=== PATIENT | female | born 1980 | race Caucasian/White ===

== ENCOUNTER 2016-09-28 08:47 | Emergency (ER) | payer SELFPAY ==
[2016-09-28] MEDS ORDERED: ACETAMINOPHEN 325 MG TABLET PO STA (10:10)
[2016-09-28] MEDS ORDERED: IBUPROFEN 400 MG TABLET PO STA (10:10)
[2016-09-28] MEDS ORDERED: IBUPROFEN 400 MG TABLET PO ONE (10:11)
[2016-09-28] MEDS ORDERED: ACETAMINOPHEN 325 MG TABLET PO ONE (10:11)
--- NOTE | 2016-09-28 10:12 | ED Physician Documentation ---
History of Present Illness - Stated complaint Stated Complaint: LT ANKLE PX - Chief complaint Chief Complaint: Ext Problem - Additonal information Additional information: hx from pt fell down beach stairs at rental house yesterday and has lat mall pain states fall caused by the stairs no other injury Review of Systems : denies: Now EGA Musculoskeletal: reports: Pain with weight bearing PD PAST MEDICAL HISTORY - Past Medical History Past Medical History: Yes Psych: Depression - Past Surgical History Past Surgical History: No - Present Medications Home Medications: Ambulatory Orders Medication Instructions Recorded Confirmed Citalopram [CeleXA] 40 mg PO DAILY 09/28/16 09/28/16 - Allergies Allergies/Adverse Reactions: Allergies Allergy/AdvReac Type Severity Reaction Status Date / Time No Known Drug Allergies Allergy Verified 09/28/16 08:52 - Social History Does the pt smoke?: No Smoking Status: Never smoker Does the pt drink ETOH?: No Does the pt have substance abuse?: No - Immunizations Immunizations are current?: Yes PD ED PE NORMAL - Vitals Vital signs reviewed: Yes - Extremities Extremities: Other (no knee pain, TTP and swelling to lat mall, no foot pain, MSV intact) Results - Vitals Vitals: Vital Signs - 24 hr 09/28/16 08:53 Heart Rate 102 H Respiratory 14 Rate Blood Pressure 119/89 H O2 Saturation 98 Oxygen O2 Source Room air - Rads (name of study) ankle Radiology: See rad report (STS ow neg) Departure - Departure Disposition: 01 Home, Self Care Clinical Impression: Ankle sprain Qualifiers: Encounter type: initial encounter Involved ligament of ankle: unspecified ligament Laterality: left Qualified Code(s): S93.402A - Sprain of unspecified ligament of left ankle, initial encounter Condition: Good Instructions: ED Sprain Ankle W X Ray, ED Crutch Walking Comments: The xray does not show any fracture Recommend wearing the IRVIN to decrease swelling - ice and elevation will help pain and swelling too Crutches to get the stress of the ankle for the next few days Then wear the ankle brace for support when ambulating again If still very painful in 2 weeks, please see your PMD for a recheck and consideration of further imaging
--- NOTE | 2016-09-28 11:20 | XRAY Report ---
EXAM: LEFT ANKLE RADIOGRAPHY EXAM DATE: 09/28/2016 10:24 AM. CLINICAL HISTORY: Lateral pain, fall downstairs. COMPARISON: None. TECHNIQUE: 3 views. FINDINGS: Bones: Bony mineralization appears appropriate. No acute fracture or focal osseous destruction. Joints: Alignment and joint spaces appear maintained. No dislocation. Soft Tissues: Soft tissue swelling laterally. IMPRESSION: Soft tissue swelling appears most prominent laterally. No acute fracture or dislocation i dentified. [facility] Referring Provider Line: [phone] SITE ID: [id number]
[2016-09-28 11:40] VITALS: BP 116/78
== END 2016-09-28 11:38 | disposition home or self-care (01) ==
LOC: ED 08:47
DX: S93.402A Sprain of unspecified ligament of left ankle, initial encounter (principal); W10.8XXA Fall (on) (from) other stairs and steps, initial encounter; Y92.018 Other place in single-family (private) house as the place of occurrence of the external cause
CPT/HCPCS: 73610; 99283; A9270